=== PATIENT | female | born 1940 ===

== ENCOUNTER → 2024-03-09 10:56 | Outpatient (REF) | payer MEDICARE, SELFPAY ==
[2024-03-09 12:33] LABS: Hemoglobin 8.2 g/dL (12.0-16.0); Mean Corp Hgb Conc. 30.4 g/dL (33.0-37.0); Mean Corpuscular Hgb 26.9 pg (27.0-31.0); Mean Corpuscular Volume 88.5 fL (81.0-99.0); Mean Platelet Volume 10.3 fL (7.4-10.4); Platelet Count 232 10^3/uL (130-400); Red Blood Cell Count 3.05 10^6/uL (4.20-5.40); White Blood Cell Count 9.9 10^3/uL (4.8-10.8)
[2024-03-09 12:39] LABS: Blood Urea Nitrogen 83 mg/dl (7-17); Calcium 8.7 mg/dl (8.4-10.2); Carbon Dioxide 31 mmol/L (22-30); Chloride 97 mmol/L (98-107); Glucose 72 mg/dl (70-99); Sodium 143 mmol/L (135-145); eGFR 29.21
== END ==
LOC: OLABN 10:56
PROVIDERS: ATTENDING PHYSICIAN Student in an Organized Health Care Education/Training Program
DX: I10 Essential (primary) hypertension (principal); E03.9 Hypothyroidism, unspecified
CPT/HCPCS: 36415; 80048; 85027

== ENCOUNTER → 2024-03-14 09:10 | Outpatient (REF) | payer MEDICARE, SELFPAY ==
[2024-03-14 12:40] LABS: Blood Urea Nitrogen 97 mg/dl (7-17); Calcium 8.5 mg/dl (8.4-10.2); Carbon Dioxide 28 mmol/L (22-30); Chloride 96 mmol/L (98-107); Glucose 85 mg/dl (70-99); Potassium 4.1 mmol/L (3.5-5.1); Sodium 139 mmol/L (135-145); eGFR 19.31
== END ==
LOC: OLABN 09:10
PROVIDERS: ATTENDING PHYSICIAN Student in an Organized Health Care Education/Training Program
DX: I72.0 Aneurysm of carotid artery (principal)
CPT/HCPCS: 36415; 80048

== ENCOUNTER → 2024-03-21 11:12 | Outpatient (REF) | payer OTHER, MEDICARE, SELFPAY ==
[2024-03-21 11:40] LABS: Hematocrit 26.2 % (37.0-47.0); Hemoglobin 7.7 g/dL (12.0-16.0); Mean Corp Hgb Conc. 29.4 g/dL (33.0-37.0); Mean Corpuscular Hgb 26.9 pg (27.0-31.0); Mean Corpuscular Volume 91.6 fL (81.0-99.0); Mean Platelet Volume 9.5 fL (7.4-10.4); Platelet Count 349 10^3/uL (130-400); Red Blood Cell Count 2.86 10^6/uL (4.20-5.40)
[2024-03-21 12:29] LABS: Blood Urea Nitrogen 54 mg/dl (7-17); Calcium 8.2 mg/dl (8.4-10.2); Carbon Dioxide 33 mmol/L (22-30); Chloride 96 mmol/L (98-107); Glucose 79 mg/dl (70-99); Sodium 140 mmol/L (135-145); eGFR 27.27
== END ==
LOC: OLABN 11:12
PROVIDERS: ATTENDING PHYSICIAN Student in an Organized Health Care Education/Training Program
DX: N18.9 Chronic kidney disease, unspecified (principal); D64.9 Anemia, unspecified
CPT/HCPCS: 36415; 80048; 85027

== ENCOUNTER → 2024-03-24 10:04 | Outpatient (REF) | payer OTHER, MEDICARE, SELFPAY ==
[2024-03-24 10:51] LABS: Hematocrit 26.8 % (37.0-47.0); Hemoglobin 7.8 g/dL (12.0-16.0); Mean Corp Hgb Conc. 29.1 g/dL (33.0-37.0); Mean Corpuscular Hgb 26.5 pg (27.0-31.0); Mean Corpuscular Volume 91.2 fL (81.0-99.0); Mean Platelet Volume 9.7 fL (7.4-10.4); Platelet Count 277 10^3/uL (130-400); Red Blood Cell Count 2.94 10^6/uL (4.20-5.40); Red Cell Dist. Width 16.2 % (11.5-14.5); Reticulocyte Count 2.4 % (0.4-2.8); White Blood Cell Count 6.8 10^3/uL (4.8-10.8)
[2024-03-24 11:04] LABS: Iron < 20 ug/dl (37-170)
[2024-03-24 11:11] LABS: Total Iron Binding Capacity 309 ug/dl (265-497)
[2024-03-24 11:37] LABS: Ferritin 17.4 ng/ml (11.1-264.0)
== END ==
LOC: OLABN 10:04
PROVIDERS: ATTENDING PHYSICIAN Student in an Organized Health Care Education/Training Program
DX: D64.9 Anemia, unspecified (principal)
CPT/HCPCS: 36415; 82728; 83540; 83550; 85027; 85045